=== PATIENT | male | born 1940 | race Hispanic/Latino ===

== ENCOUNTER → 2025-07-12 | Emergency (ER) | payer MEDICARE ==
[~2025-07-12] VITALS: Ht 185.4 cm; Wt 79.4 kg
--- NOTE | 2025-07-12 13:05 | ERN ---
ED Note History of Present Illness Stated Complaint: SYNCOPE EPISODE Chief Complaint: Syncope Time Seen by MD: 13:00 Time Seen by Midlevel: 13:00 Dictation: Mr. Jorge is a he is very year old gentleman with history of CAD/CABG, non- Hodgkin's lymphoma, hypertension, chronic eye pain/trigeminal neuropathy, SDH/evacuation, chronic hyponatremia, BPH/urinary incontinence, and COPD who was transported via EMS to the emergency department this afternoon for evaluation following syncopal episode. It was reported that patient was having routine lab draw at the [facility] when he "collapsed". According to patient's he stopped breathing and she had to perform mouth to mouth. He was unresponsive for a reported 3 minutes. Patient states he only recalls becoming dizzy after he got to the lab. He states this has never happened to him before. Patient denies recent illness or injury. He denies fever, chills, shortness of breath, cough, chest pain, palpitations, edema, abdominal pain, nausea, vomiting, hematemesis, constipation, diarrhea, melena, hematochezia, dysuria, headache, or focal weakness/paresthesia. Paramedics noted bradycardia with heart rate 52 NS systolic blood pressure reading of 80. Accu-Chek 90. They administered NS 250 mL IV as bolus. Upon arrival to the ED patient is alert and oriented x4. He states he is feeling somewhat better but still feels weak/tired. PCP: Dr. Rusty Tapia Naphthol Soaping Machine Operator: Dr. Collins Neurologist: Dr. Lupillo Tovar Pain management: Dr. Bustillos UPDATE: Patients arrived to the emergency department. She states that when he became unresponsive he had a grand mal seizure . She describes this as one arm jerking, his head and neck went stiff, and he was nonverbal. She states that she could not feel a pulse and he was not breathing so she administered CPR; she states she performed three rounds of 30 compressions and two breaths while patient was seated in the chair. He was incontinent. He did not fall to the floor. She states that after 3 minutes he woke. She states that they had gone for fasting labs this morning at one lab and then had to also go to [facility] because he needed some specialty review labs for his neurologist. She also mentions that he has been taking Percocet tablets for the past 2-3 months for his chronic eye pain/trigeminal neuropathy. She believes he had 2.5 mg this morning. Allergies: Coded Allergies: No Known Allergies (Unverified Allergy, Unknown, 07/12/25) Emergency Care HYDRO TECHNICIAN: IV Past Medical History Past Medical History: CAD, COPD, Hypertension, Other (Non-Hodgkin's lymphoma) Surgical History: CABG PSYCH History: no pertinent psych hx RN Note Reviewed/Agreed w/PFSH: Yes Review of System Dictation REVIEW OF SYSTEMS: CONSTITUTIONAL: Patient denies fevers, chills, sweats and weight changes. Reports fatigue and general weakness EYES: Patient denies any visual symptoms. EARS, NOSE, AND THROAT: No difficulties with hearing. No symptoms of rhinitis or sore throat. CARDIOVASCULAR: Patient denies chest pains, palpitations, orthopnea and paroxysm al nocturnal dyspnea. Paramedics noted bradycardia with heart rate 52 and systolic blood pressure 80 RESPIRATORY: No dyspnea on exertion, no wheezing or cough. Patient's states that he stopped breathing and that she had to administer [id number] GI: No vomiting, diarrhea, constipation, abdominal pain, hematochezia or melena. Reported slight nausea. : No urinary hesitancy or dribbling. No nocturia or urinary frequency. No abnormal urethral discharge. MUSCULOSKELETAL: No myalgias or arthralgias. NEUROLOGIC: No chronic headaches, no seizures. Patient denies numbness, tingling or weakness. Reported dizziness when he arrived to lab. Patient's stated that he collapsed and was unresponsive for 3 minutes. PSYCHIATRIC: Patient denies problems with mood disturbance. No problems with anxiety. ENDOCRINE: No excessive urination or excessive thirst. DERMATOLOGIC: Patient denies any rashes or skin changes. Initial Vital Sign VS Vital Signs Date Time Temp Pulse Resp B/P (MAP) Pulse Ox O2 Delivery O2 Flow Rate FiO2 07/12/25 12:59 96.6 54 19 108/62 94 Nasal Cannula 2.0 07/12/25 13:39 21 Physical Exam Dictation Vital signs: Reviewed. Afebrile. Constitutional: No acute distress. Calm/cooperative. Chronically ill-appearing Head/Face: Normocephalic, atraumatic. Eyes: Periorbital areas with no swelling, redness, or edema. Lids and lashes are normal. Conjunctival injection is absent. Sclera anicteric. Pupils equal, round, reactive to light. ENT: Pinnas intact and no signs of trauma or erythema. Ear canals clear and no discharge. TMs no erythema. No nasal discharge or bleeding noted. Oropharynx with no exudate, redness, swelling, masses, exudates, or evidence of obstruction. Uvula midline. Mucous membranes moist. Neck: Trachea midline, no masses palpated, and no cervical lymphadenopathy. No swelling. Supple, full range of motion. Chest/Axilla: No tenderness, no crepitus, no paradoxical movement, no retractions. Cardiovascular: Regular rate, regular rhythm, no murmur, no gallops. Symmetric pulses. No peripheral edema. Normotensive; BP 108/62. Twelve lead EKG reflects a sinus bradycardia ventricular rate 48; right bundle-branch block (no old EKG for comparison) Respiratory: Respirations even and unlabored. Lung sounds clear; no wheezes, rales or rhonchi. SpO2 94% with supplemental oxygen via nasal cannula at L/min. Gastrointestinal: Inspection is normal. No distention is appreciated. Bowel sounds are normal. No mass or organomegaly . There is no tenderness. No rebound. No rigidity. No voluntary or involuntary guarding. No Mendoza's sign. Neurological: Normal speech, gross motor function intact, gross sensory function intact. No focal weakness/Paresthesia. Musculoskeletal/Extremities: All extremities have full range of motion, no pain or tenderness on palpation. Symmetric pulses. Integumentary: Intact. Skin is normal color, warm and dry. Cap refill less than 3 seconds. Results (Laboratory/Radiology) Laboratory/Radiology Laboratory Tests Test 07/12/25 13:22 07/12/25 15:45 White Blood Count 1.6 K/uL (4.8-10.8) L Red Blood Count 3.12 MIL/uL (4.50-6.20) L Hemoglobin 10.6 g/dL (14.0-18.0) L Hematocrit 29.8 % (42-54) L Mean Corpuscular Volume 95.5 fL (79-99) Mean Corpuscular Hemoglobin 34.0 pg (27.0-33.0) H Mean Corpuscular Hemoglobin Concent 35.6 g/dL (32.0-36.0) Red Cell Distribution Width 12.8 % (11.0-15.5) Platelet Count 29 K/uL (130-400) L Mean Platelet Volume 12.3 fL (7.5-10.5) H Immature Granulocyte % (Auto) 0.6 % (0-1) Neutrophils (%) (Auto) 50.6 % (40.0-77.0) Lymphocytes (%) (Auto) 32.9 % (21.0-51.0) Monocytes (%) (Auto) 15.9 % (3.0-13.0) H Eosinophils (%) (Auto) 0.0 % (0.0-8.0) Basophils (%) (Auto) 0.0 % (0.0-5.0) Neutrophils # (Auto) 0.8 K/uL (1.8-7.7) L Lymphocytes # (Auto) 0.5 K/uL (1.0-4.8) L Monocytes # (Auto) 0.3 K/uL (0.1-1.0) Eosinophils # (Auto) 0.00 K/uL (0.00-0.70) Basophils # (Auto) 0.00 K/uL (0.00-0.20) Absolute Immature Granulocyte (auto 0.01 K/uL (0-1) Nucleated Red Blood Cells 0.0 % (0.0-0.19) White Cell Morphology Comment See comments Platelet Morphology Comment MARKED DECREASE Sodium Level 132 mmol/L (136-145) L Potassium Level 4.4 mmol/L (3.5-5.1) Chloride Level 97 mmol/L (101-111) L Carbon Dioxide Level 26 mmol/L (21-32) Blood Urea Nitrogen 11 mg/dL (7-18) Creatinine 1.0 mg/dL (0.5-1.3) Glomerular Filtration Rate Calc 75 mL/min (>90) Random Glucose 111 mg/dL (70-105) H Total Calcium 8.8 mg/dL (8.5-10.1) Magnesium Level 2.10 mg/dL (1.80-2.40) Total Bilirubin 0.8 mg/dL (0.2-1.0) Direct Bilirubin 0.3 mg/dL (0.0-0.3) Aspartate Amino Transf (AST/SGOT) 13 U/L (10-37) Alanine Aminotransferase (ALT/SGPT) 15 U/L (12-78) Alkaline Phosphatase 62 U/L (50-136) Troponin I High Sensitivity 11 ng/L (4-75) B-Type Natriuretic Peptide 126 pg/mL (0-100) H Total Protein 7.0 g/dL (6.0-8.3) Albumin 3.9 g/dL (3.5-5.0) Urine Color LIGHT-YELLOW (YELLOW) Urine Appearance CLEAR (CLEAR) Urine pH 6.5 (5.0-8.0) Urine Specific [place] 1.009 (1.001-1.031) Urine Protein 20 mg/dL (NEGATIVE) H Urine Glucose (UA) NEGATIVE mg/dL (NEGATIVE) Urine Ketones 5 mg/dL (NEGATIVE) H Urine Occult Blood NEGATIVE (NEGATIVE) Urine Nitrate NEGATIVE (NEGATIVE) Urine Bilirubin NEGATIVE mg/dL (NEGATIVE) Urine Urobilinogen 0.2 mg/dL (0.2-1.0) Urine Leukocyte Esterase NEGATIVE Yohan/uL Urine RBC 0-1 /HPF (0-1) Urine WBC 2-5 /HPF (0-1) H Urine Squamous Epithelial Cells RARE /HPF (0-2) Urine Bacteria None /HPF (None Seen) Labs Reviewed?: Yes EKG Comment: EKG Interpretation: Time Reviewed: 1305 Ventricular rate: 48 bpm WA Interval: 320 ms QRS duration: [address] segment elevation Clinical impression: Sinus bradycardia with right bundle-branch block EKG Reviewed and interpreted by Dr. Storm CT Scan Comment: PATIENT: ROBERT JORGE MR#: [id number] : 1940 SEX: M AGE: 85 LOCATION: ED ORDER 1411 STATUS: [facility] REPORT#: [id number] SERVICE 1409 REASON: seizure ORDERING PHYSICIAN: MAGDIEL CHA NP PROCEDURE: HEAD WO - CT HEAD/BRAIN W/O CONTRAST EXAM: CT Head Without IV contrast. CLINICAL HISTORY: seizure TECHNIQUE: Axial computed tomography images of the head/brain without intravenous contrast. COMPARISON: None provided. FINDINGS: BRAIN: No acute bleed or infarct. Chronic ischemic and atrophic changes. VENTRICLES: No hydrocephalus. ORBITS: The orbits are unremarkable. SINUSES AND MASTOIDS: The paranasal sinuses and mastoid air cells are clear. BONES: No fracture. SOFT TISSUES: Unremarkable. IMPRESSION: No acute bleed or infarct. Chronic ischemic and atrophic changes. /[place] DICTATED BY: DICK BARNES MD DATE: 07/12/251543 ELECTRONICALLY SIGNED BY: DICK BARNES MD DATE: 07/12/251543 ED Course ED Course Orders Procedure Category Date Status Time 12 Lead Ekg Tracing- EKG 07/12/25 Resulted Technical 13:00 Cbc With Differential LAB 07/12/25 Complete 13:00 Basic Metabolic Panel LAB 07/12/25 Complete 13:00 Hepatic Function Panel LAB 07/12/25 Complete 13:00 Urinalysis Profile LAB 07/12/25 Complete 13:00 Troponin I High LAB 07/12/25 Complete Sensitivity 13:00 B-Type Natriuretic LAB 07/12/25 Complete Peptide 13:00 Magnesium LAB 07/12/25 Complete 13:00 Orthostatic Vital CPOE 07/12/25 Transmitted Signs 13:00 0.9% Nacl 250ml (Ns PHA 07/12/25 Complete 250ml) 13:00 Ct Head/Brain W/O CT 07/12/25 Resulted Contrast 14:09 Levetiracetam 500 PHA 07/12/25 Complete Mg/5 Ml Sd V (Keppra 5 16:30 Carbamazepine Er PHA 07/12/25 Complete 200mg Tab (Tegretol Er 16:30 Current Medications Medications (Trade) Dose Ordered Sig/Perla Route PRN Reason Start Time Stop Time Status Last Admin Dose Admin Carbamazepine (TEGRetol ER 200MG TAB) 1,000 mg ONCE PO 07/12/25 16:30 07/12/25 20:30 DC 07/12/25 16:35 Levetiracetam (kepPRA 500 MG/5 ML SD VIAL) 1,000 mg ONCE IV 07/12/25 16:30 07/12/25 20:30 DC 07/12/25 16:26 Sodium Chloride 250 ml @ 0 mls/hr ONCE ONCE IV 07/12/25 13:00 07/12/25 13:11 DC 07/12/25 13:20 Vital Signs Date Time Temp Pulse Resp B/P (MAP) Pulse Ox O2 Delivery O2 Flow Rate FiO2 07/12/25 18:11 97.5 54 12 141/63 99 Room Air* 0 21 07/12/25 15:14 97.7 52 12 131/72 98 Room Air* 0 21 07/12/25 13:39 97.0 47 13 119/59 96 Room Air* 0 21 98/53 104/59 07/12/25 12:59 96.6 54 19 108/62 94 Nasal Cannula 2.0 Patient remains bradycardic with heart rate 48-58; normotensive with repeat blood pressure readings noted map greater than 70. Twelve lead EKG reflects a sinus bradycardia with right bundle-branch block (as seen on previous EKG); significant ST changes Laboratory findings as noted below.WBC 1.6, H/H 10.6/29.8, Na/Cl 132/97, glucose 111, and BNP 126. Stat noncontrast CT scan of the brain unremarkable; no intracranial hemorrhage. NIHSS=0. Hospital no neurologist on-call this weekend. I spoke with (sap plant maintenance consultant for Dr. Tapia) who recommends transfer for new onset seizures. Discussed these findings with patient and his who agreed to transfer. Patient will be transferred to [facility] to ICU under care of Dr. Wilson with critical care consultation. Case also discussed with Critical Care PICKLING TANK OPERATOR Chito who accepts patinet for consult (Dr. Lonnie Leon attending). He has had no further seizure activity and remains alert and oriented He has received NS 250ml IV as bolus as well as Keppra 1g and Tegretol (per home regimen) 1g. Medical Decision Making MDM MDM: Differential diagnosis: symptomatic bradycardia, ACS, acute dehydration, electrolyte derangement Rationale: Tests considered and ordered secondary to shared decision making include: labs, ECG and radiology Previous outside records reviewed: Old ER visits. Risk of complication and/or morbidity or mortality of patient management: None Medications-Per medication reconciliation Need for hospitalization: Patient does meet criteria for hospitalization. Need for emergency major/minor surgery: No There are no social concerns with this patient. Prescription drug management Prescriptions will include symptomatic care Patient's prior external medical records from other ER visits were reviewed by me as indicated. Prior testing and results from previous visits were reviewed. Prior tests were taken into account with medical decision making and resource utilization, independent historian/historians were used to obtain complete medical history. I independently interpreted the test that were performed, results were reviewed by me and considered findings on radiology if ordered. Medical management and examination interpretation discussions were had by me with other qualified healthcare professionals as indicated for the patient's care. DX & DISP Disposition: Transfer Departure Impression: Primary Impression: New onset seizure Additional Impressions: Bradycardia, Syncopal episodes Condition: Stable Assign Patient to: Tranfser to [facility] ICU Attending Dr. Wilson Consult Critical Care: Dr. Lonnie Leon Referrals: SELF,REFERRAL (PCP) I have examined patient, & reviewed all documents, & agreed W/ the Diagnosis, and Plan Patient is seen and evaluated with the nurse practitioner. Mother who was at bedside states that patient had new onset seizure but also states that patient has had multiple surgeries for evacuation of subdural hematomas. As we have no neurology at this time we will transfer out MAGDIEL CHA NP Jul 12, 2025 13:05 JOAN HOFFMAN MD Jul 13, 2025 07:03
[2025-07-12] MEDS: 0.9% NACL 250ML 250 ML IV ONE (13:20)
--- NOTE | 2025-07-12 13:21 | EKG ---
[facility] Test Date: 2025-07-12 Test Time: 13:05:13 Pat Name: ROBERT JORGE Department: [facility] Room: Gender: M Radiation Officer: [id number] : 1940 Requested By: MAGDIEL CHA Order Number: [id number] Reading MD: Vishal Marion Measurements Intervals [place] Rate: 48 P: -19 CT: 320 QRS: -89 QRSD: 186 T: 49 QT: 502 QTc: 451 Interpretive Statements Sinus bradycardia Prolonged CT interval RBBB and LAFB No previous ECG available for comparison Electronically Signed On 07-12-2025 15:38:45 CDT by Vishal Marion Please click the below link to view image of tracing.
[2025-07-12 13:25] LABS: IMMATURE GRANULOCYTE ABSOLUTE 0.01 K/uL (0-1); NUCLEATED RED BLOOD CELLS 0.0 % (0.0-0.19); PLATELET COUNT (AUTO) 29 K/uL (130-400); RED BLOOD CELL COUNT(AUTO) 3.12 MIL/uL (4.50-6.20); RED CELL DISTRIBUTION WIDTH 12.8 % (11.0-15.5); WHITE BLOOD COUNT (AUTO) 1.6 K/uL (4.8-10.8)
[2025-07-12 13:33] LABS: CREATININE 1.0 mg/dL (0.5-1.3); GLOMERULAR FILTR. RATE CALC 75.0 mL/min (>90); GLUCOSE,RANDOM 111.0 mg/dL (70-105); SODIUM SERUM 132.0 mmol/L (136-145); UREA NITROGEN, BLOOD 11.0 mg/dL (7-18)
[2025-07-12 13:38] LABS: ASPARTATE AMINOTRANSFERASE 13.0 U/L (10-37); TOTAL PROTEIN, SERUM 7.0 g/dL (6.0-8.3)
[2025-07-12 13:55] LABS: PLATELET MORPHOLOGY COMMENT MARKED DECREASE
--- NOTE | 2025-07-12 14:35 | NUR ---
PT RETURNED FROM CT.
--- NOTE | 2025-07-12 14:45 | HMCIMG ---
EXAM: CT Head Without IV contrast. CLINICAL HISTORY: seizure TECHNIQUE: Axial computed tomography images of the head/brain without intravenous contrast. COMPARISON: None provided. FINDINGS: BRAIN: No acute bleed or infarct. Chronic ischemic and atrophic changes. VENTRICLES: No hydrocephalus. ORBITS: The orbits are unremarkable. SINUSES AND MASTOIDS: The paranasal sinuses and mastoid air cells are clear. BONES: No fracture. SOFT TISSUES: Unremarkable. IMPRESSION: No acute bleed or infarct. Chronic ischemic and atrophic changes. /[place]
--- NOTE | 2025-07-12 15:25 | NUR ---
[employer] AP[employer]AIS[employer] INITIATED TRANSFER REQUEST TO [facility] [place]IGHER LEVEL OF CARE-NEUROLOGY SERVICES.
[2025-07-12 15:52] LABS: APPEARANCE,URINE CLEAR (CLEAR); GLUCOSE, URINE (UA) NEGATIVE (NEGATIVE); LEUKOCYTE ESTERASE ,URINE NEGATIVE Leu/uL (NEGATIVE); NITRATE,URINE NEGATIVE (NEGATIVE); OCCULT BLOOD,URINE NEGATIVE (NEGATIVE)
[2025-07-12 15:58] LABS: ADD UA MICROSCOPIC YES
[2025-07-12 16:00] LABS: SQUAMOUS EPITHELIAL CELL,UR RARE /HPF (0-2)
--- NOTE | 2025-07-12 16:35 | NUR ---
ADMINISTERED 200MG OF CARBAMEZAPINE PO ONCE, PATIENTS AT BEDSIDE STATED HE TAKES 200MG PO 5 TIMES A DAY, SHE STATED HE TOOK HIS MORNING DOSE BUT MISSED LUNCH AND MIDDAY DOSE, SHE REQUESTED 1000MG INITIALY BUT TOLD ME AT BEDSIDE IT WAS A MISTAKE AND TO JUST GIVE HIM 200MG ONCE RIGHT NOW ONLY, PATIENT RESTING IN BED, CALL LIGHT IN REACH
--- NOTE | 2025-07-12 17:15 | NUR ---
RECEIVED CALL FROM [facility]. PATIENT BEEN ACCEPTED FOR TRANSFER AT 1604. PT BE GOING TO ICU ROOM 1212
[2025-07-12 18:11] VITALS: BP 141/63; PULSE 54; RESP 12; TEMP 97.6; O2SAT 99
--- NOTE | 2025-07-12 18:16 | NUR ---
CALLED AND GAVE REPORT TO TANMAY FERNANDEZ FROM [facility], EMS ARRIVED FOR PATIENT, NO COMPLICATIONS
== END ==
LOC: EDBD 12:55 → EDH 12:55
DX: R56.9 Unspecified convulsions (principal); R00.1 Bradycardia, unspecified; R55 Syncope and collapse; I10 Essential (primary) hypertension; I25.10 Atherosclerotic heart disease of native coronary artery without angina pectoris; J44.9 Chronic obstructive pulmonary disease, unspecified; Z85.72 Personal history of non-Hodgkin lymphomas; Z95.1 Presence of aortocoronary bypass graft
CPT/HCPCS: 99285; 96365; 96361; 70450; 80076; 83735; 84484; 80048; 83880; 85025; 81001; 36415; 93005; J1953; J7050